=== PATIENT | female | born 1950 | race Caucasian/White ===

== ENCOUNTER 2016-06-11 08:58 | Observation (INO) | payer MEDICARE, OTHER ==
[~2016-06-11] VITALS: Ht 160 cm; Wt 72.8 kg
[~2016-06-11 08:58] MED LIST: CHOL200024 PO; CYAN100028 PO; ESTR1PAT89 TD; GLYB1.252 PO; IRBE150T25 PO; KRIL500C PO; LACT1CAP37 PO; LANS30CA PO; LEVO50TA5 PO; METF500T27 PO; PRAV10TA2 PO; UBID200C8 PO
[2016-06-11] MEDS ORDERED: ACETAMINOPHEN 500 MG TABLET PO ONE (09:20)
[2016-06-11] MEDS ORDERED: GABAPENTIN 300 MG CAPSULE PO ONE (09:20)
[2016-06-11] MEDS ORDERED: LACTATED RINGERS 1,000 ML IV SCH (09:20)
[2016-06-11] MEDS ORDERED: LIDOCAINE 1%, 2ML SQ PRN (09:30)
[2016-06-11] MEDS: POTASSIUM CHLORIDE 20 MEQ in LACTATED RINGERS 1,000 ML IV SCH ×2 (09:44→18:01)
[2016-06-11] MEDS ORDERED: DIPHENHYDRAMINE 25 MG CAPSULE PO PRN (10:00)
[2016-06-11] MEDS ORDERED: HYDROmorphone 1 MG/ML, 1ML IV PRN ×2 (10:00→11:30)
[2016-06-11] MEDS ORDERED: OXYcodone/APAP 5/325MG TABLET PO PRN (10:00)
[2016-06-11] MEDS ORDERED: DIPHENHYDRAMINE 50 MG/ML, 1ML IV PRN (10:00)
[2016-06-11] MEDS ORDERED: MIDAZOLAM 1 MG/ML, 2ML ONE (10:21)
[2016-06-11] MEDS ORDERED: FENTANYL PF 250 MCG/5ML ONE (10:21)
[2016-06-11] MEDS ORDERED: DEXAMETHASONE 4 MG/ML, 1ML ONE (10:56)
[2016-06-11] MEDS ORDERED: SUCCINYLCHOLINE 20 MG/ML, 10ML ONE (10:56)
[2016-06-11] MEDS ORDERED: PHENYLEPHRINE 10 MG/ML ONE (10:56)
[2016-06-11] MEDS ORDERED: ONDANSETRON 2MG/ML, 2ML ONE (10:56)
[2016-06-11] MEDS ORDERED: PROPOFOL 10 MG/ML, 20ML ONE (10:56)
[2016-06-11] MEDS: INSULIN ASPART 100 UNITS/ML, PEN SQ-INSULIN SCH ×3 (11:00→20:15)
[2016-06-11] MEDS ORDERED: ACETAMINOPHEN 325 MG TABLET PO PRN (11:30)
[2016-06-11] MEDS ORDERED: MEPERIDINE/PF 25MG/0.5ML IVPush PRN (11:30)
[2016-06-11] MEDS ORDERED: METOPROLOL 1 MG/ML, 5ML IV PRN (11:30)
[2016-06-11] MEDS ORDERED: ALBUTEROL SULFATE 2.5 MG/3 ML NPPB PRN (11:30)
[2016-06-11] MEDS ORDERED: OXYcodone 5 MG/5 ML ORAL.SOL UDC PO PRN (11:30)
[2016-06-11] MEDS ORDERED: HALOPERIDOL 5 MG/ML IV PRN (11:30)
[2016-06-11] MEDS ORDERED: hydrALAzine 20 MG/ML, 1ML IV PRN (11:30)
[2016-06-11] MEDS ORDERED: OXYcodone 5 MG/5 ML ORAL.SOL UDC ONE (12:27)
[2016-06-11] MEDS ORDERED: ACETAMINOPHEN 650 MG/20.3 ML UDC ONE (12:28)
[2016-06-11] MEDS ORDERED: FENTANYL PF 100 MCG/2ML ONE (12:28)
[2016-06-11] MEDS: FENTANYL PF 100 MCG/2ML IV PRN ×2 (12:35→13:20)
[2016-06-11 13:50] VITALS: BP 143/97
[2016-06-11 17:05] VITALS: BP 139/80
[2016-06-11] MEDS: metFORMIN XR 500 MG TAB.ER.24H PO SCH (17:09)
[2016-06-11 20:16] VITALS: BP 141/91
[2016-06-11] MEDS ORDERED: PRAVASTATIN 20 MG TABLET PO SCH (21:00)
[2016-06-11] MEDS ORDERED: IRBESARTAN 150 MG TABLET PO ONE (22:00)
[2016-06-12 00:19] VITALS: BP 129/76
[2016-06-12] MEDS: POTASSIUM CHLORIDE 20 MEQ in LACTATED RINGERS 1,000 ML IV SCH ×2 (04:00→12:02)
[2016-06-12 04:08] VITALS: BP 132/69
[2016-06-12] MEDS ORDERED: LEVOTHYROXINE 112 MCG TABLET PO SCH (06:00)
[2016-06-12] MEDS: INSULIN ASPART 100 UNITS/ML, PEN SQ-INSULIN SCH ×2 (06:06→11:55)
[2016-06-12] MEDS ORDERED: PANTOPROZOLE 40MG TABLET PO SCH (07:30)
[2016-06-12 08:19] VITALS: BP 120/67
[2016-06-12] MEDS: metFORMIN XR 500 MG TAB.ER.24H PO SCH (08:47)
[2016-06-12] MEDS ORDERED: IRBESARTAN 150 MG TABLET PO SCH (09:00)
[2016-06-12] MEDS ORDERED: UBIDECARENONE 200 MG PO SCH (09:00)
[2016-06-12] MEDS ORDERED: TEMPLATE NON-FORMULARY MED. (Lansoprazole** 30 MG) PO SCH (09:00)
[2016-06-12 13:01] VITALS: BP 120/63
[2016-06-12] MEDS ORDERED: LEVO112T2 PO (14:11)
[2016-06-12] MEDS ORDERED: OXYC-302 PO (14:11)
[2016-06-15] MEDS ORDERED: ESTRADIOL 0.05 MG/24 HR PATCH TD SCH (09:00)
== END 2016-06-12 14:30 | disposition home or self-care (01) ==
LOC: OUT 08:58 → ORIP 09:44 → 4NOR 13:42 → DCLOUNGE 06-12 13:47
PROVIDERS: ADMIT Surgery; ATTEND Surgery
DX: E04.2 Nontoxic multinodular goiter (principal)
CPT/HCPCS: 36415; 60220; 82040; 82310; 82962; 88307; 95865; 95940; C1760; G0378; J0330; J1100; J2250; J2370; J2405; J2704; J3010; J3480; J3490; J7120

== ENCOUNTER → 2017-10-04 | Outpatient (CLI) | payer MEDICARE ==
[~2017-10-04] MED LIST changes: +LEVO112T2 PO; +OMNIPAQUE 350 MG/ML, 100ML BOTTLE ONE; +OXYC-302 PO; +UBID200C35 PO; -UBID200C8 PO
== END | disposition home or self-care (01) ==
LOC: CFH 08:14
PROVIDERS: ATTEND Nurse Practitioner Family
DX: K86.2 Cyst of pancreas (principal)
CPT/HCPCS: 74170; Q9967

== ENCOUNTER → 2017-11-01 | Outpatient (CLI) | payer MEDICARE ==
[~2017-11-01] MED LIST changes: -OMNIPAQUE 350 MG/ML, 100ML BOTTLE ONE
[2017-11-01 14:46] LABS: ALBUMIN 3.9 g/dL (3.4-5.0); ANION GAP 12 mmol/L (5-15); CALCIUM 9.8 mg/dL (8.5-10.1); CHLORIDE 103 mmol/L (98-107)
[2017-11-01 14:50] LABS: ALANINE AMINOTRANSFERASE 63 U/L (12-78); ALKALINE PHOSPHATASE 65 U/L (45-117); BILIRUBIN,TOTAL 0.6 mg/dL (0.2-1.0); CREATININE 0.82 mg/dL (0.55-1.02); TOTAL PROTEIN 7.3 g/dL (6.4-8.2)
== END | disposition home or self-care (01) ==
LOC: STAR 13:42
PROVIDERS: ATTEND Internal Medicine Geriatric Medicine
DX: Z01.818 Encounter for other preprocedural examination (principal); K86.2 Cyst of pancreas
CPT/HCPCS: 36415; 80053; 93005

== ENCOUNTER 2017-11-05 05:48 | Day surgery (SDC) | payer MEDICARE ==
[~2017-11-05] VITALS: Ht 160 cm; Wt 68.1 kg
[2017-11-05] MEDS ORDERED: GLYB2.5T2 PO (06:45)
[2017-11-05] MEDS ORDERED: LACTATED RINGERS 1,000 ML IV SCH (07:01)
[2017-11-05] MEDS ORDERED: FAMOTIDINE 20 MG/2 ML ONE (07:20)
[2017-11-05] MEDS ORDERED: FENTANYL PF 100 MCG/2ML ONE (07:50)
[2017-11-05] MEDS ORDERED: ROCURONIUM 10MG/ML,5ML ONE (07:51)
[2017-11-05] MEDS ORDERED: GLYCOPYRROLATE 0.2MG/1ML, 5ML ONE (07:51)
[2017-11-05] MEDS ORDERED: PROPOFOL 10 MG/ML, 20ML ONE (07:51)
[2017-11-05] MEDS ORDERED: NEOSTIGMINE 1 MG/ML, 10ML ONE (07:51)
[2017-11-05] MEDS ORDERED: SUCCINYLCHOLINE 20 MG/ML, 10ML ONE (07:51)
[2017-11-05] MEDS ORDERED: DEXAMETHASONE 4 MG/ML, 1ML ONE (07:51)
[2017-11-05] MEDS ORDERED: CEFAZOLIN 1,000 MG ONE (07:51)
[2017-11-05] MEDS ORDERED: ONDANSETRON 2MG/ML, 2ML ONE (07:51)
[2017-11-05] MEDS ORDERED: PROCHLORPERAZINE 5 MG/ML, 2ML IV PRN (08:00)
[2017-11-05] MEDS ORDERED: ONDANSETRON 2MG/ML, 2ML IV PRN (08:00)
[2017-11-05] MEDS ORDERED: DIPHENHYDRAMINE 50 MG/ML, 1ML IVPush PRN (08:00)
[2017-11-05] MEDS ORDERED: FENTANYL PF 100 MCG/2ML IV PRN (08:00)
[2017-11-05] MEDS ORDERED: PROMETHAZINE 25 MG/ML, 1ML IV PRN (08:00)
[2017-11-05] MEDS ORDERED: LABETALOL 5MG/ML, 20ML IV PRN (08:00)
[2017-11-05] MEDS ORDERED: hydrALAzine 20 MG/ML, 1ML IV PRN (08:00)
== END 2017-11-05 10:10 | disposition home or self-care (01) ==
LOC: OUT 05:48
PROVIDERS: ATTEND Internal Medicine Geriatric Medicine
DX: K86.2 Cyst of pancreas (principal); K21.9 Gastro-esophageal reflux disease without esophagitis; E03.9 Hypothyroidism, unspecified; E11.9 Type 2 diabetes mellitus without complications; I10 Essential (primary) hypertension
CPT/HCPCS: 43238; 82962; 88305; J0330; J0690; J1100; J2405; J2704; J2710; J3010; J3490; J7120

== ENCOUNTER 2019-01-12 08:06 | Inpatient (IN) | payer MEDICARE ==
[~2019-01-12] VITALS: Ht 160 cm; Wt 68.9 kg
[~2019-01-12 08:06] MED LIST changes: +GLYB2.5T2 PO
[2019-01-12] MEDS ORDERED: LEVO150T5 PO (08:28)
[2019-01-12] MEDS ORDERED: GLYB1.252 PO (08:28)
[2019-01-12] MEDS ORDERED: Pravastatin PO (08:28)
[2019-01-12] MEDS ORDERED: MECLIZINE CHEWABLE 25 MG TAB PO ONE (08:30)
--- NOTE | 2019-01-12 08:30 | NUR ---
LATE NOTE ENTRY FOR 805 DUE TO PT CARE. Pt presents to ED by EMS from home today with c/o dizziness and "weak legs". 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 PT denies cp. All extremities CMS intact and no weakness observed. Pt negative for stroke signs or symptoms. Pt denies n/v/d, trauma, or syncope. Bedrails up x 2 and call light within reach. EDPA at bedside. NADN. No needs expressed at this time.
[2019-01-12] MEDS ORDERED: MECLIZINE CHEWABLE 25 MG TAB ONE (08:37)
[2019-01-12 08:48] LABS: BASOPHILS # (AUTO) 0.08 x10^3/uL (0-0.1); BASOPHILS % (AUTO) 1 % (0-1); EOSINOPHILS # (AUTO) 0.22 x10^3/uL (0-0.4); EOSINOPHILS % (AUTO) 4 % (1-7); LYMPHOCYTES # (AUTO) 1.91 x10^3/uL (1-3.4); LYMPHOCYTES % (AUTO) 34 % (22-44); MD NO; MEAN CORPUSCULAR HEMOGLOBIN 34.2 pg (27.0-34.8); MEAN CORPUSCULAR HGB CONC 33.9 g/dL (32.4-35.8); MEAN CORPUSCULAR VOLUME 100.9 fL (80-100); MEAN PLATELET VOLUME 7.2 fL (7.4-10.4); MONOCYTES # (AUTO) 0.65 x10^3/uL (0.2-0.8); MONOCYTES % (AUTO) 11 % (2-9); NEUTROPHILS # (AUTO) 2.86 x10^3/uL (1.8-6.8); NEUTROPHILS % (AUTO) 50 % (42-75); PLATELET COUNT 230 x10^3/uL (130-400); RED BLOOD COUNT 4.55 x10^6/uL (3.82-5.3)
--- NOTE | 2019-01-12 08:49 | NUR ---
Pt away from ED room on [facility] at this time.
--- NOTE | 2019-01-12 08:53 | NUR ---
Pt back to room on [facility]. Provided pt medication per EMAR. JUSTINA. No other needs expressed at this time.
[2019-01-12 08:55] LABS: ALBUMIN 3.9 g/dL (3.4-5.0); ANION GAP 5 mmol/L (5-15); CALCIUM 9.5 mg/dL (8.5-10.1); CHLORIDE 104 mmol/L (98-107)
[2019-01-12 09:00] LABS: CREATININE 0.77 mg/dL (0.55-1.02); TROPONIN I < 0.015 ng/mL (0.000-0.045)
--- NOTE | 2019-01-12 10:21 | NUR ---
Provided pt water per request. NADN. No other needs expressed. Pt pending imaging. Call light within reach.
--- NOTE | 2019-01-12 10:57 | NUR ---
PT REPORT FROM TERE HAN. PT CARE TO BE ASSUMED.
--- NOTE | 2019-01-12 11:09 | NUR ---
SITTING QUIETLY ON KATHERINE USING OWN CELL PHONE. A&OX4, RESP EVEN & UNLABORED, SPEECH CLEAR, SKIN WNL. STATES "I'M DIZZY. NOT LIKE THE ROOM SPINNING, LIKE I AM". REPORTS NO IMPROVEMENT FROM MECLIZINE. REPORTS MRI WAS DONE. SIDE RAILS UP X2, CALL LIGHT W/IN REACH. SPOUSE IN ROOM Addendum: 01/12/19 at 1114 by LIA CARDIAC & VS MONITORING CONTINUING
--- NOTE | 2019-01-12 12:22 | NUR ---
PT REPORT TO TERE ENNIS FOR ROOM [id number]
[2019-01-12 13:00] VITALS: BP 148/89
[2019-01-12 14:53] VITALS: BP 151/81
[2019-01-12 14:55] VITALS: BP 151/88
[2019-01-12 14:58] VITALS: BP 174/100
[2019-01-12] MEDS ORDERED: OLME40TA22 PO (15:22)
[2019-01-12] MEDS ORDERED: ONDANSETRON ODT 4 MG PO PRN (16:00)
[2019-01-12] MEDS ORDERED: ASA/APAP/ CAFFEINE TABLET PO PRN (16:00)
[2019-01-12] MEDS ORDERED: POLYETHYLENE GLYCOL 17 GM PACKET PO PRN (16:00)
[2019-01-12] MEDS ORDERED: GUAIFENESIN/DM 200-20MG, 10ML UDC PO PRN (16:00)
[2019-01-12] MEDS ORDERED: LABETALOL 5MG/ML, 20ML IVPush PRN (16:00)
[2019-01-12] MEDS ORDERED: ACETAMINOPHEN 325 MG TABLET PO PRN (16:00)
[2019-01-12] MEDS ORDERED: DOCUSATE 100 MG CAPSULE PO PRN (16:00)
[2019-01-12] MEDS ORDERED: hydrALAzine 20 MG/ML, 1ML IVPush PRN (16:00)
[2019-01-12 16:05] LABS: MICROSCOPIC AUTO
[2019-01-12 16:11] LABS: CULTURE INDICATED? YES
[2019-01-12] MEDS: HEPARIN 5,000 UNITS/ML, 1ML SQ SCH (16:53)
[2019-01-12] MEDS: HYDROCHLOROTHIAZIDE 25 MG TABLET PO SCH (16:54)
[2019-01-12 19:00] VITALS: BP 160/91
[2019-01-12] MEDS: PRAVASTATIN 20 MG TABLET PO SCH (20:34)
[2019-01-13] VITALS (8 sets, daily range): BP systolic 82–182; BP diastolic 56–114
[2019-01-13] MEDS: HEPARIN 5,000 UNITS/ML, 1ML SQ SCH ×3 (00:07→17:06)
[2019-01-13] MEDS: LEVOTHYROXINE 137 MCG TABLET PO SCH (05:35)
[2019-01-13] MEDS: PANTOPROZOLE 40MG TABLET PO SCH (05:35)
[2019-01-13 06:00] LABS: BASOPHILS # (AUTO) 0.06 x10^3/uL (0-0.1); BASOPHILS % (AUTO) 1 % (0-1); EOSINOPHILS # (AUTO) 0.23 x10^3/uL (0-0.4); EOSINOPHILS % (AUTO) 4 % (1-7); LYMPHOCYTES # (AUTO) 2.13 x10^3/uL (1-3.4); LYMPHOCYTES % (AUTO) 35 % (22-44); MD NO; MEAN CORPUSCULAR HEMOGLOBIN 34.3 pg (27.0-34.8); MEAN CORPUSCULAR HGB CONC 33.7 g/dL (32.4-35.8); MEAN CORPUSCULAR VOLUME 101.9 fL (80-100); MEAN PLATELET VOLUME 7.7 fL (7.4-10.4); MONOCYTES # (AUTO) 0.92 x10^3/uL (0.2-0.8); MONOCYTES % (AUTO) 15 % (2-9); NEUTROPHILS # (AUTO) 2.84 x10^3/uL (1.8-6.8); NEUTROPHILS % (AUTO) 46 % (42-75); PLATELET COUNT 222 x10^3/uL (130-400); RED BLOOD COUNT 4.51 x10^6/uL (3.82-5.3); RED CELL DISTRIBUTION WIDTH 12.8 % (9.6-15.2)
[2019-01-13 06:10] LABS: CHLORIDE 102 mmol/L (98-107)
[2019-01-13 06:19] LABS: ANION GAP 9 mmol/L (5-15); CALCIUM 9.7 mg/dL (8.5-10.1); CREATININE 0.69 mg/dL (0.55-1.02)
[2019-01-13] MEDS ORDERED: UBIDECARENONE 200 MG PO SCH (09:00)
[2019-01-13] MEDS ORDERED: TEMPLATE NON-FORMULARY MED. (Krill Oil 500 MG) PO SCH (09:00)
[2019-01-13] MEDS: CHOLECALCIFEROL 1,000 UNIT TABLET PO SCH (10:06)
[2019-01-13] MEDS: HYDROCHLOROTHIAZIDE 25 MG TABLET PO SCH (10:06)
[2019-01-13] MEDS: VALSARTAN 320 MG TABLET PO SCH (10:06)
[2019-01-13] MEDS: CYANOCOBALAMIN 1,000 MCG TABLET PO SCH (10:06)
[2019-01-13] MEDS ORDERED: SODIUM CHLORIDE 0.9%, 500ML IVBOLUS STA (12:34)
[2019-01-13 13:50] LABS: ALANINE AMINOTRANSFERASE 56 U/L (12-78); ALBUMIN 3.9 g/dL (3.4-5.0); ANION GAP 11 mmol/L (5-15); CALCIUM 9.7 mg/dL (8.5-10.1); CHLORIDE 102 mmol/L (98-107); CREATININE 0.97 mg/dL (0.55-1.02)
[2019-01-13 13:53] LABS: ALKALINE PHOSPHATASE 66 U/L (45-117); BILIRUBIN,TOTAL 0.8 mg/dL (0.2-1.0); TOTAL PROTEIN 7.2 g/dL (6.4-8.2); TROPONIN I < 0.015 ng/mL (0.000-0.045)
[2019-01-13] MEDS ORDERED: POTASSIUM CHLORIDE 20 MEQ TAB.ER.PRT PO ONE (14:30)
[2019-01-13] MEDS: PRAVASTATIN 20 MG TABLET PO SCH (20:26)
[2019-01-14] MEDS: HEPARIN 5,000 UNITS/ML, 1ML SQ SCH ×2 (01:08→09:48)
[2019-01-14 02:03] VITALS: BP 120/73
[2019-01-14] MEDS: LEVOTHYROXINE 137 MCG TABLET PO SCH (05:26)
[2019-01-14] MEDS: PANTOPROZOLE 40MG TABLET PO SCH (05:26)
[2019-01-14 05:49] LABS: BASOPHILS # (AUTO) 0.01 x10^3/uL (0-0.1); BASOPHILS % (AUTO) 0 % (0-1); EOSINOPHILS # (AUTO) 0.12 x10^3/uL (0-0.4); EOSINOPHILS % (AUTO) 2 % (1-7); LYMPHOCYTES # (AUTO) 1.71 x10^3/uL (1-3.4); LYMPHOCYTES % (AUTO) 26 % (22-44); MD NO; MEAN CORPUSCULAR HGB CONC 33.8 g/dL (32.4-35.8); MEAN CORPUSCULAR VOLUME 100.7 fL (80-100); MEAN PLATELET VOLUME 7.7 fL (7.4-10.4); MONOCYTES # (AUTO) 0.99 x10^3/uL (0.2-0.8); MONOCYTES % (AUTO) 15 % (2-9); NEUTROPHILS # (AUTO) 3.69 x10^3/uL (1.8-6.8); NEUTROPHILS % (AUTO) 57 % (42-75); PLATELET COUNT 211 x10^3/uL (130-400); RED BLOOD COUNT 4.34 x10^6/uL (3.82-5.3); RED CELL DISTRIBUTION WIDTH 12.9 % (9.6-15.2)
[2019-01-14 06:01] LABS: ALBUMIN 3.3 g/dL (3.4-5.0); ANION GAP 6 mmol/L (5-15); CALCIUM 9.2 mg/dL (8.5-10.1); CHLORIDE 104 mmol/L (98-107)
[2019-01-14 06:04] LABS: ALANINE AMINOTRANSFERASE 40 U/L (12-78); ALKALINE PHOSPHATASE 41 U/L (45-117); BILIRUBIN,TOTAL 0.9 mg/dL (0.2-1.0); CREATININE 0.74 mg/dL (0.55-1.02); TOTAL PROTEIN 6.5 g/dL (6.4-8.2)
[2019-01-14 07:49] VITALS: BP 126/76
[2019-01-14 07:53] VITALS: BP 117/74
[2019-01-14] MEDS: CYANOCOBALAMIN 1,000 MCG TABLET PO SCH (09:38)
[2019-01-14] MEDS: CHOLECALCIFEROL 1,000 UNIT TABLET PO SCH (09:38)
[2019-01-14] MEDS: VALSARTAN 320 MG TABLET PO SCH (09:48)
[2019-01-14] MEDS: HYDROCHLOROTHIAZIDE 25 MG TABLET PO SCH (09:48)
[2019-01-14 12:05] VITALS: BP 113/74
[2019-01-14] MEDS ORDERED: HYDR25TA6 PO (16:20)
[2019-01-14] MEDS ORDERED: MAGN400T50 PO (16:20)
[2019-01-14] MEDS ORDERED: LEVO137T2 PO (16:53)
[2019-01-15] MEDS ORDERED: MAGNESIUM OXIDE 400 MG TABLET PO SCH (09:00)
== END 2019-01-14 16:50 | disposition home or self-care (01) | DRG 74 ==
LOC: ED 11:41 → INTOOBSV 11:44 → EDIP 11:44 → 4EST 12:36 → OBSVTOIN 01-13 14:56
PROVIDERS: ADMIT Family Medicine; ATTEND Internal Medicine
DX: G90.8 Other disorders of autonomic nervous system (principal); E87.1 Hypo-osmolality and hyponatremia; E87.6 Hypokalemia; E11.65 Type 2 diabetes mellitus with hyperglycemia; D75.89 Other specified diseases of blood and blood-forming organs; E11.42 Type 2 diabetes mellitus with diabetic polyneuropathy; E53.8 Deficiency of other specified B group vitamins; E78.5 Hyperlipidemia, unspecified; E83.42 Hypomagnesemia; E89.0 Postprocedural hypothyroidism; I10 Essential (primary) hypertension; K21.9 Gastro-esophageal reflux disease without esophagitis; R19.7 Diarrhea, unspecified; R11.2 Nausea with vomiting, unspecified; R42 Dizziness and giddiness
CPT/HCPCS: 36415; 70450; 70551; 71045; 74018; 80048; 80053; 81001; 82040; 82607; 82962; 83036; 83735; 84436; 84443; 84484; 85025; 87086; 93005; 93306; 93880; 96374; G0378; J1644; Q0162; J0360; J7040